=== PATIENT | male | born 1980 | race American Indian/Alaskan Native ===

== ENCOUNTER 2017-03-31 15:07 | Emergency (ER) | payer MEDICAID ==
[2017-03-31 16:11] VITALS: BP 145/88
[2017-03-31 16:42] LABS: Basophils % (Auto) 0.5 % (0.0-1.8); Eosinophils % (Auto) 0.1 % (0.0-4.3); Hematocrit 45.9 % (35.5-45.6); Hemoglobin 14.9 gm/dl (11.8-15.2); Mean Corpuscular HGB Conc 33 % (32-34); Mean Corpuscular Hemoglobin 27 pg (28-32); Mean Corpuscular Volume 82 fl (84-94); Platelet Count 194 K/mm3 (140-440); Red Blood Count 5.62 M/mm3 (3.65-5.03); Red Cell Distribution Width 15.3 % (13.2-15.2); White Blood Count 12.9 K/mm3 (4.5-11.0)
[2017-03-31 17:00] LABS: Urine Drugs of Abuse Note Disclamer
[2017-03-31 17:04] LABS: Alanine Aminotransferase 22 units/L (7-56); Albumin/Globulin Ratio 1.4 %; Alkaline Phosphatase 76 units/L (35-129); Anion Gap 23 mmol/L; Blood Urea Nitrogen 7 mg/dL (9-20); Calcium 9.7 mg/dL (8.4-10.2); Carbon Dioxide 20 mmol/L (22-30); Chloride 98.8 mmol/L (98-107); Glucose 99 mg/dL (75-100); Potassium 3.1 mmol/L (3.6-5.0); Sodium 139 mmol/L (137-145); Total Protein 8.6 g/dL (6.3-8.2)
[2017-03-31 17:16] LABS: Bilirubin,Urine NEG (Negative); Blood,Urine SM (Negative); Ketones,Urine 20 mg/dL (Negative); Leukocyte Esterase,Urine NEG (Negative); Mucus,Urine FEW /HPF; Nitrite,Urine NEG (Negative); Sperm,Urine 1+ /HPF (NP); Urobilinogen,Urine < 2.0 mg/dL (<2.0)
[2017-03-31] MEDS ORDERED: K-DUR PO ONE (21:46)
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
--- NOTE | 2017-04-01 08:16 | XRay Report ---
ROUTINE CHEST, TWO VIEWS: HISTORY: Difficulty breathing. The trachea, heart, mediastinal contour, and lung nix are unremarkable. There is mild dextroscoliosis of the thoracic spine. No acute bony abnormality. IMPRESSION: Mild scoliosis. Otherwise, unremarkable chest exam.
== END 2017-03-31 22:13 | disposition home or self-care (01) ==
LOC: ED 15:07
DX: E87.6 Hypokalemia (principal); F17.200 Nicotine dependence, unspecified, uncomplicated
CPT/HCPCS: 36415; 71020; 80053; 80307; 81001; 85025; 87086